=== PATIENT | female | born 1940 | race Caucasian/White ===

== ENCOUNTER 2016-07-12 07:03 | Day surgery (SDC) | payer MEDICARE ==
--- NOTE | ~2016-07-12 | CON ---
PATIENT'S NAME: SERA DEY [facility] AGE: 76 Y [address] ROOM: [place] [address] LOCATION: GEND ADMIT DATE: 07/12/2016 Consultation DISCHARGE DATE: FAMILY PHYSICIAN: Rohan Magana ATTENDING PHYSICIAN: Sam Woods DATE OF CONSULTATION: 07/12/2016 REFERRING PHYSICIAN: Sam Woods MD CHIEF COMPLAINT: "I have a colon mass." HISTORY OF PRESENT ILLNESS: The patient is a 76-year-old female who has had weakness, was found to be anemic. She ultimately had a hemoglobin level checked that was 7.1. She has a remote history of a colon resection this was performed in 1995. She does not know what portion of colon was resected, this was thought to be for malignant polyp, but apparently after resection and was told there was no cancer there. She had no followup after this. She recently had a diarrheal illness. She was treated by antibiotics and now is having bowel movements on nearly a daily basis. She has noticed no melena, no nausea, or vomiting. She was able to complete her bowel prep. She had a colonoscopy performed. On colonoscopy, there was a mass identified at 15 cm. They were not able to traverse this to see the rest of the colon. Several biopsies of this were obtained, that was very concerning for a malignancy. Because of that, I have been consulted. The patient does have a family history of colon cancer with a brother who had colon cancer. PAST MEDICAL HISTORY: Hypertension, history of melanoma. ALLERGIES: NORVASC, PENICILLIN WHICH CAUSES A RASH. CURRENT MEDICATIONS: 1. Clonidine. 2. Irbesartan. 3. Hydrochlorothiazide. 4. Metoprolol. PAST SURGICAL HISTORY: Colon resection, appendectomy, tonsillectomy, as well as excision of melanoma of left arm. FAMILY HISTORY: PATIENT'S NAME: SERA DEY [facility] AGE: 76 Y [address] ROOM: [place] [address] LOCATION: GEND ADMIT DATE: 07/12/2016 Consultation DISCHARGE DATE: FAMILY PHYSICIAN: Rohan Magana ATTENDING PHYSICIAN: Sam Woods A Mother with hypertension. Father with hypertension. She has a brother with colon cancer. SOCIAL HISTORY: Drinks alcohol very rarely. She does drink 2-3 cups of coffee a day. She is , nonsmoker. REVIEW OF SYSTEMS: She denies any headaches, fevers, or chills. No night sweats. She has had no melena, no hematochezia, no hematuria, no dysuria. No diabetes. No pulmonary disease or coronary artery disease. A full review of systems otherwise is all negative. PHYSICAL EXAMINATION: HEENT: Head is normocephalic, atraumatic. Eyes are anicteric. NECK: Supple. No lymphadenopathy. HEART: Regular rate and rhythm. No murmurs audible. LUNGS: Clear to auscultation bilaterally. ABDOMEN: Soft. It is nontender. She has a well-healed midline incision. EXTREMITIES: Warm. No edema. NEUROLOGICAL: Gross motor is intact. ASSESSMENT: Anemia with a colon mass at 3 cm. PLAN: I discussed the findings with the patient and her family, and with this mass being not able to be traversed, likely this is going to need resection. I would like to have biopsy results. We also need to find out what her previous colon resection was as she does not recall what this. She has a CT scan ordered. If metastatic disease is present, likely she will need chemotherapy. We will await those results and discuss this with her when we have the other information. MD MINA ARRIAGA/gurdeep /[id number] d: 07/12/16 1732 t: 07/14/16 1455, CONSULTATION REPORT
[~2016-07-12 07:03] MED LIST: ATIVAN 0.5MG0.5 MG PO; CATAPRES0.1 MG PO; IRBESARTAN-HCT1 EAC1 PO; TOPROL XL 5050 MG PO
[2016-07-12 09:44] LABS: BASOPHIL % 0.3 %; EOSINOPHIL % 0.3 %; HEMATOCRIT 23.3 % (33.0-46.0); IMMATURE GRANULOCYTE # 0.1 K/uL (0.0-0.3); IMMATURE GRANULOCYTE % 1.2 %; LYMPHOCYTE # 0.9 K/uL (0.8-4.0); MCH 21.7 pg (27.0-34.0); MCHC 29.2 gm/dL (32.0-36.5); MCV 74.4 fl (83.0-98.0); MONOCYTE # 0.4 K/uL (0.0-1.0); MONOCYTE % 6.5 %; MPV 8.8 fl (9.4-12.4); NEUTROPHIL # (ANC) 5.2 K/uL (1.8-7.8); NEUTROPHIL % 78.7 %; NRBC % 0 /100WBC (0-0.00); PLATELET COUNT 356 K/uL (150-450); RBC 3.13 M/uL (3.50-5.50); RDW-CV 16.3 % (11.9-14.6); WBC 6.6 K/uL (4.0-11.0)
[2016-07-12 09:48] LABS: PROTIME 10.9 SECONDS (9.6-11.1)
[2016-07-12 09:50] LABS: HEMOGLOBIN 6.8 g/dL (10.0-15.0)
[2016-07-12 09:58] LABS: ALBUMIN 2.8 gm/dL (3.5-5.0); ANION GAP 10.6 (10.0-19.0); BLOOD UREA NITROGEN 17 mg/dL (6-24); CALCIUM 8.4 mg/dL (8.5-10.5); CHLORIDE 108 mMol/L (96-110); CO2 26 mMol/L (22-32); CREATININE 0.9 mg/dL (0.5-1.1); ESTIMATED GFR (MDRD EQUATION) > 60; PHOSPHORUS 3.1 mg/dL (2.5-4.9); POTASSIUM 3.6 mMol/L (3.7-5.1); SODIUM 141 mMol/L (135-145)
--- NOTE | 2016-07-12 12:19 | NUR ---
0915 Dr Woods to conference room 4 to talk with the family about the finding of the EGD and Colonoscopy, and the need for more Lab work and a CT of the abdomen and pelvis. 1020 First 1/2 of barium drank, pt up to bathroom, family at bedside Dr Woods and Dr Hoang have been in and visited with the pt and family. Will do the CT this am and then make a plan from there. 1050 2nd half of barium drank. pt up to the bathroom. [address] to remind them pt is ready and they states We will send for transport. 1200 Dr Peggy ceron and made aware of the fact that we are still waiting on CT to be done. Report to Elsa Dong RN, she is taking over care on this patient. She called CT again and they are going to find out how soon they will be coming to get the pt
--- NOTE | 2016-07-12 14:29 | NUR ---
[address] PER W/C. FAMILY REMAINS IN ROOM [address] FAMILY AT SIDE. 1250 DR DURÁN IN, PT C/O HEADACHE. TYLENOL 1000 MG PO FOR C/O PAIN THAT SHE RATES AT A 4. [place] 1300 [facility]S HIM CALLED FOR SECOND REQUEST OF OP REPORT FROM 1995. INFORMATION SENT TO E' PER [facility]' REQUEST 1315 DR MONTESINOS CALLED REGARDING PT STATUS. STATES WILL BE OVER IN A COUPLE OF HOURS TO GO OVER RESULTS 1400 DRESSED, AMBULATES IN HALLS WITH FAMILY, OFFERS NO C/O
--- NOTE | 2016-07-12 14:55 | NUR ---
14[address] [facility] CALLED AGAIN REGARDING MEDICAL RECORDS. WAS TOLD THAT THEY ARE OUT IN STORAGE AND THEY WOULD NOT BE ABLE TO GET THEM TODAY 1455 DR MONTESINOS HERE TO VISIT WITH PT
--- NOTE | 2016-07-12 16:46 | NUR ---
1530 BLOOD CONSENT SIGNED 1630 1ST UNIT [facility] STARTED. PT TOLERATING WELL. DENIES ANY C/O
--- NOTE | 2016-07-12 17:25 | NUR ---
1720 BLOOD INCREASED TO 170 ML/HR PER PUMP. PT DOZES, OFFERS NO C/O
--- NOTE | 2016-07-12 18:20 | NUR ---
181 REPORT TO SAMPSON MANN. 1820 1ST UNIT [facility] INFUSED
== END 2016-07-12 20:40 | disposition disaster alternative care site (69) ==
LOC: GEND 07:03 → GSIP 07:03 → GPOC 13:00 → GEND 20:40
PROVIDERS: Internal Medicine Gastroenterology
PROC: 0DB68ZX Excision of Stomach, Via Natural or Artificial Opening Endoscopic, Diagnostic (ICD-10-PCS; principal; 2016-07-12)
PROC: 0DB98ZX Excision of Duodenum, Via Natural or Artificial Opening Endoscopic, Diagnostic (ICD-10-PCS; 2016-07-12)
PROC: 0DBN8ZX Excision of Sigmoid Colon, Via Natural or Artificial Opening Endoscopic, Diagnostic (ICD-10-PCS; 2016-07-12)
DX: C18.7 Malignant neoplasm of sigmoid colon (principal); D50.9 Iron deficiency anemia, unspecified; I10 Essential (primary) hypertension; Z86.010 Personal history of colon polyps; Z88.0 Allergy status to penicillin; Z88.8 Allergy status to other drugs, medicaments and biological substances; Z90.49 Acquired absence of other specified parts of digestive tract; Z98.890 Other specified postprocedural states
CPT/HCPCS: J2001; J2250; J7030; J7040; P9016; Q9967

== ENCOUNTER 2016-07-13 11:00 | Inpatient (IN) | payer MEDICARE ==
[~2016-07-13] VITALS: Ht 152.4 cm; Wt 61.4 kg
--- NOTE | ~2016-07-13 | OR ---
PATIENT'S NAME: SERA DEY [facility] AGE: 76 Y [address] ROOM: [address] [address] [place] [facility] [place]: 07/13/2016 OR/Procedure Report DISCHARGE DATE: FAMILY PHYSICIAN: Rohan Magana ATTENDING PHYSICIAN: Tejinder Hoang SURGEON: Tejinder Hoang MD QA DEVELOPER: Celi Caraballo PA-C. DATE OF PROCEDURE: 07/13/2016 PREOPERATIVE DIAGNOSIS: Left colonic adenocarcinoma. POSTOPERATIVE DIAGNOSIS: Left colonic adenocarcinoma. PROCEDURE: Extended left colectomy with transverse colon rectal anastomosis. FINDINGS: The patient had a large number of adhesions making dissection very difficult. There was a large tumor with significant inflammatory changes surrounding this. Because of the previous left colectomy, the entire colon had to be mobilized and able to perform an anastomosis. ESTIMATED BLOOD LOSS: 500 mL. COMPLICATIONS: None. INDICATIONS: The patient is a 76-year-old female who was anemic and was found to have a large adenocarcinoma. She had previous left hemicolectomy for polyps. CT revealed no evidence of metastatic disease. We discussed resection with the patient, the risks, benefits, and alternatives, which included, but were not limited to, bleeding, infection, ureter injury, anastomotic leak, potential need for ostomy, injury to other viscera. She understood the risks and elected to proceed. DESCRIPTION OF PROCEDURE: The patient was taken to the operating room, she was placed supine, she is given IV sedation, and subsequently intubated. She was placed in stirrups and a Grant catheter was inserted. Her abdomen was then prepped with ChloraPrep and sterilely draped. In the left upper quadrant, a small stab incision was created. A Veress needle was inserted. Pneumoperitoneum was induced. Following this, using an optical viewing trocar, we inserted a 5-mm trocar. Visualization was not possible on insertion and there were concerns for a bowel injury at this time. Another trocar was then inserted using the optical viewing trocar leaving the 1st trocar in place. This was inserted in the left abdomen. The 1st trocar was encased in an area of bowel and omentum. On insertion of the camera, she was noted to have adhesions, a large number of these throughout the abdomen. Two more trocars were placed. These were a 5 and a 12 mm trocar making this a PATIENT'S NAME: SERA DEY [facility] AGE: 76 Y [address] ROOM: [id number] [place], [place] [address] [place] [facility] [place]: 07/13/2016 OR/Procedure Report DISCHARGE DATE: FAMILY PHYSICIAN: Rohan Magana ATTENDING PHYSICIAN: Tejinder Hoang total of 4 trocars. We began adhesiolysis. We lysed adhesions around where the initial trocar was inserted and it did appear as though this did create an enterotomy. Once this was lysed, we were able to identify this area, the trocar had created 2 small holes in the bowel. These were both closed with the laparoscopic endo-stitch. The enterotomies were very small. We continued adhesiolysis of the entire bowel. This was quite extensive and extending all the way from the epigastrium all way down into the pelvis. More than an hour and a half were spent lysing adhesions before we could identify the colon. There were adhesions into the pelvis. These were also lysed. Once we were able to visualize the colon, we began laparoscopic mobilization. Because we could not identify any significant tissue planes due to her previous resection, ultimately we ended up converting to a laparotomy. Again, more than 2 hours were spent laparoscopically mainly in adhesiolysis. The pneumoperitoneum was released. A midline incision was created over previous incision carried through subcutaneous tissues using electrocautery. The linea alba was then incised, the abdominal cavity entered, and the incision was opened along its entirety. An Aaron wound protector was placed to aid in retraction. We then turned our attention to the colon. She had a previous hemicolectomy performed and it appeared as though the small bowel was very adherent to the colon and we continued to lyse adhesions until we could visualize the entire colon. It appeared as though the distal transverse colon and potentially a portion of the flexure had been previously mobilized and brought down into the pelvis. We were able to identify the previous area of anastomosis. Again, dissection was a very difficult as there were no significant tissue planes and a large number of adhesions. We were able to dissect circumferentially around the colon just below the previous anastomosis. A contour stapler was then placed across this and fired so that we could free the more proximal bowel. We continued to mobilize the bowel. Again, there were a large number of adhesions and mesentery was even difficult to discern. We advanced up to where this large mass was present. This was very firm. There were significant inflammatory changes surrounding this. The ureter was difficult to identify, but ultimately we were able to identify this, and this was felt to be preserved. We continued our dissection on the tumor and an en bloc resection of the tumor was able to be performed. The omentum was surrounding the tumor. To free this area, all of this was divided with the EnSeal device and again en bloc resection was able to be performed. Once we had dissected proximal to the tumor, it did not appear that we would have enough mobility to reach the pelvis without sacrificing the middle colic vessels. Ultimately, the middle colic vessels were divided with the EnSeal device. We continued to mobilize the colon. The hepatic flexure and right colon were also mobilized. The peritoneum lateral to the colon was incised and the colon was mobilized medially. Indocyanine green was then injected with the lights off. We visualized the transverse colon. This enabled us to select a resection point. The mesentery was then divided into this area, distal to this, there did not appear to be perfusion. The bowel was then PATIENT'S NAME: SERA DEY [facility] AGE: 76 Y [address] ROOM: [address] [address] [place] [facility] [place]: 07/13/2016 OR/Procedure Report DISCHARGE DATE: FAMILY PHYSICIAN: Rohan Magana ATTENDING PHYSICIAN: Tejinder Hoang divided in this area between a pursestring clamp. This was passed off the table as specimen. We examined the specimen on the back-table. The previous distal staple line was present within our resection specimen. Once this was completed, the pursestring suture was placed on the transverse colon. A 29 EEA anvil was inserted into the [id number] transverse colon and was secured. The bowel was again inspected. We had adequate mobility. We had checked perfusion previously. It would appear as though this would lie in the pelvis without tension. The stapler was then inserted in the rectum and brought up to the rectal stump. This was below the sacral promontory. The spike was brought out the rectum, the anvil was then docked onto the spike, the stapler was closed, the stapler was fired, this was then leak tested, and there was no air leak. There were 2 full rings when the stapler was removed. The abdominal cavity was then copiously irrigated, it was inspected, it appeared hemostatic. The enterotomy that was previously repaired was examined. It was tested and was watertight. However, the appearance was suboptimal. Because of this, I removed the suture and repaired both of these areas, which were less than a cm in size with interrupted 3-0 silk sutures. This was again leak tested. During the dissection, the left tube was very adherent, we had difficulty finding planes in this area, there was some bleeding around this, because of this, this was resected as well. Again, the abdominal cavity was copiously irrigated. It appeared hemostatic. The midline fascia was then reapproximated with 0 looped PDS suture. The skin edges were reapproximated with daniel. Sponge, needle, and instrument counts are reported as correct. The operation required nearly 5 hours of operative time. MD MINA ARRIAGA/gurdeep /[id number] d: 07/14/16 0059 t: 07/14/16 1455, OPERATIVE SUMMARY
--- NOTE | ~2016-07-13 | DS ---
PATIENT'S NAME: SERA HELM [facility] AGE: 76 Y [address] ROOM: [id number] [place], [place] [address] LOCATION: [facility] – [place] ADMIT DATE: 07/13/2016 Discharge Summary DISCHARGE DATE: 07/20/2016 FAMILY PHYSICIAN: Rohan Magana ATTENDING PHYSICIAN: Tejinder Hoang DIAGNOSES: 1. Stage IIA adenocarcinoma of the left colon at 15 cm with prior history of a sigmoid colon resection. 2. Acute blood loss anemia with history of chronic anemia from gastrointestinal blood loss. 3. Hypertension. 4. Protein-calorie malnutrition. 5. Prior history of melanoma. SUMMARY: Sera Helm is a 76-year-old female, who recently had noticed weakness and was found to be anemic with a hemoglobin of 7.1. The patient was evaluated by Dr. Woods and a colonoscopy was attempted. There was a mass identified at 15 cm and they were not able to traverse this with the scope to view the rest of the colon. Several biopsies were obtained and adenocarcinoma was found. Dr. Hoang was asked to see the patient on July 12. A CT scan was obtained, which showed a descending colon lesion in the left lower quadrant. The lesion was exophytic, ulcerated with inflammatory change and adjacent fluid collection along the psoas in the left retroperitoneum. No evidence for distant metastatic disease was seen. Dr. Hoang discussed the findings and options versus surgical resection. The patient was transfused prior to discharge from her colonoscopy and was brought back to [facility] the following day to review pathology results. The patient subsequently chose to proceed with colon resection that afternoon. Therefore, she was admitted to [facility] on July 13, where she received 2 g IV preoperatively. The patient was taken into the operating room for a laparoscopic, which converted to an open colon resection. Please see Dr. Hoang's procedure note for specifics. We had an estimated blood loss of 700 mL. Postoperatively, activity was allowed as tolerated. An NG tube was placed to low intermittent suction. Grant to dependent drainage. Pulmonary toiletry was encouraged. An epidural was placed by anesthesiologist for postoperative pain control. Heparin was ordered for DVT prophylaxis. On postop day 1, pain control was adequate. She had some dry heaves. NG only had 50 mL out. Hemoglobin was 9.4. CEA level returned at 16.4. On postop day 2, the NG tube was removed. Home medications were resumed for hypertension. On postop day 3, the patient reported passing gas. She had no nausea. Pain continued to be controlled. She was started on clear liquids and was advanced to a full liquid diet later in the day. On postop day 4, her epidural catheter was removed. Her bowels were working with frequent loose stools. She was tolerating clear liquids. Her IV was saline locked. On PATIENT'S NAME: SERA HELM [facility] AGE: 76 Y [address] ROOM: [address] [address] LOCATION: [facility] – [place] ADMIT DATE: 07/13/2016 Discharge Summary DISCHARGE DATE: 07/20/2016 FAMILY PHYSICIAN: Rohan Magana ATTENDING PHYSICIAN: Tejinder Hoang postop day 5, the patient was nauseated and states that she did not eat much in the last 24 hours. She continued to have loose stools. IV fluids were restarted. Later in the day, the patient was feeling better and felt that the nausea was related to the [place]. She was advanced to a surgical soft diet. [place] was discontinued. Tylenol, ibuprofen, and Nucynta were all ordered for pain control along with Pepcid for the nausea. On postop day 6, the patient was doing well and was tolerating p.o. intake. On postop day 7, the patient continued to do well. Final pathology results were discussed and arrangements were made for the patient to discharge home. Dr. Cazares was asked by family to review the patient's home medications for the hypertension. She did stop amlodipine and the morning dose of metoprolol and added hydralazine. DISCHARGE INSTRUCTIONS: Include no restrictions on diet. No heavy lifting. She will follow up with Dr. Hoang in 1 week. DISCHARGE MEDICATIONS: Includes: 1. Metoprolol 50 mg orally q.h.s. 2. Irbesartan/hydrochlorothiazide 300/12.5 one tablet p.o. daily. 3. Lorazepam 0.5 mg 3 times daily as needed for anxiety. 4. Tylenol 500 mg 2 p.o. every 6 hours as needed for pain. 5. Calcium carbonate 2-4 tablets orally every 4 hours as needed. 6. Ibuprofen 600 mg orally every 6 hours as needed. 7. Hydralazine 50 mg orally twice daily. FINAL PATHOLOGY RESULTS: Adenocarcinoma grade 2 of 3 with no metastatic carcinoma in 19 pericolic lymph nodes. This is a T3 N0 placing it as a stage IIA colon cancer of the left colon, most likely descending colon. Again, CEA level was 16.[address] scan of the abdomen and pelvis preoperatively showed no metastatic disease. The patient will need a followup completion colonoscopy. For specifics on day-to-day care, please refer to the hospital chart. MARGUERITE QUEEN PA-C FOR MD HOMERO ARRIAGA/gurdeep /[id number] d: 07/21/16610 t: 07/25/16 1658, DISCHARGE SUMMARY
[2016-07-13 12:48] LABS: BASOPHIL % 0.2 %; EOSINOPHIL % 0.5 %; HEMOGLOBIN 10.1 g/dL (10.0-15.0); IMMATURE GRANULOCYTE % 0.5 %; LYMPHOCYTE # 1.2 K/uL (0.8-4.0); LYMPHOCYTE % 13.8 %; MONOCYTE # 0.5 K/uL (0.0-1.0); MONOCYTE % 5.3 %; MPV 9.4 fl (9.4-12.4); NEUTROPHIL # (ANC) 6.9 K/uL (1.8-7.8); NEUTROPHIL % 79.7 %; NRBC % 0 /100WBC (0-0.00); RDW-CV 16.2 % (11.9-14.6); WBC 8.6 K/uL (4.0-11.0)
[2016-07-13 12:49] LABS: HEMATOCRIT 32.4 % (33.0-46.0); MCH 23.4 pg (27.0-34.0); MCHC 31.2 gm/dL (32.0-36.5); PLATELET COUNT 266 K/uL (150-450); RBC 4.32 M/uL (3.50-5.50)
[2016-07-13 13:03] LABS: ALBUMIN 2.9 gm/dL (3.5-5.0); ANION GAP 15.4 (10.0-19.0); BLOOD UREA NITROGEN 13 mg/dL (6-24); CALCIUM 8.5 mg/dL (8.5-10.5); CHLORIDE 110 mMol/L (96-110); CO2 21 mMol/L (22-32); CREATININE 0.9 mg/dL (0.5-1.1); ESTIMATED GFR (MDRD EQUATION) > 60; PHOSPHORUS 2.5 mg/dL (2.5-4.9); POTASSIUM 3.4 mMol/L (3.7-5.1); SODIUM 143 mMol/L (135-145)
[2016-07-13 20:01] LABS: BASOPHIL % 0.1 %; HEMATOCRIT 36.6 % (33.0-46.0); HEMOGLOBIN 11.7 g/dL (10.0-15.0); IMMATURE GRANULOCYTE # 0.1 K/uL (0.0-0.3); IMMATURE GRANULOCYTE % 0.6 %; LYMPHOCYTE # 0.8 K/uL (0.8-4.0); LYMPHOCYTE % 5.4 %; MCH 26.1 pg (27.0-34.0); MONOCYTE # 0.7 K/uL (0.0-1.0); MONOCYTE % 5.1 %; MPV 9.2 fl (9.4-12.4); NEUTROPHIL # (ANC) 12.4 K/uL (1.8-7.8); NEUTROPHIL % 88.8 %; NRBC % 0 /100WBC (0-0.00); PLATELET COUNT 222 K/uL (150-450); RBC 4.48 M/uL (3.50-5.50)
[2016-07-13 20:02] LABS: MCV 81.7 fl (83.0-98.0); RDW-CV 18.2 % (11.9-14.6)
[2016-07-13 20:25] LABS: INR - (THERAPEUTIC) 1.15 (0.92-1.07); PROTIME 12.1 SECONDS (9.8-11.4)
[2016-07-14 05:02] LABS: HEMATOCRIT 29.5 % (33.0-46.0); HEMOGLOBIN 9.4 g/dL (10.0-15.0); MCH 25.4 pg (27.0-34.0); MCHC 31.9 gm/dL (32.0-36.5); MCV 79.7 fl (83.0-98.0); MPV 9.6 fl (9.4-12.4); RBC 3.7 M/uL (3.50-5.50); RDW-CV 17.2 % (11.9-14.6); WBC 15.6 K/uL (4.0-11.0)
[2016-07-14 05:24] LABS: ANION GAP 12.7 (10.0-19.0); BLOOD UREA NITROGEN 15 mg/dL (6-24); CALCIUM 7.3 mg/dL (8.5-10.5); CHLORIDE 112 mMol/L (96-110); CO2 23 mMol/L (22-32); CREATININE 0.8 mg/dL (0.5-1.1); ESTIMATED GFR (MDRD EQUATION) > 60; POTASSIUM 3.7 mMol/L (3.7-5.1); SODIUM 144 mMol/L (135-145)
--- NOTE | 2016-07-14 05:34 | NUR ---
Significant Event: Patient alert and oriented X4. Patient on fent/ropicaine epidural 3mcg cont/2mcg demand and 10min lockout. 3 lap sites to R) side abdomen and midline incision has shadow drainage. Midline IV to L) upper arm with LR running at 125ml. On room air. Vitals stable. Afebrile. 0.1mg IV dilaudid given X1 for breakthrough pain. Miles in place. Pressed pain button 13 demands/13 deliveries. NPO with ice chips, candy gum. Patient compaints of pain after coughing and has dry mouth. ICe chips and swabs at bedside. Follow up: Monitor pain
--- NOTE | 2016-07-14 08:39 | NUR ---
(-)MST; NO UNPLANNED WT LOSS. WILL ASSIST NEEDED
--- NOTE | 2016-07-14 16:13 | NUR ---
Patient is alert and oriented, VSS, on room air. NPO with ice chips, hard candy and gum. 1-2 assist with gait belt. Epidural with Fent/Ropiv set at 5mcg continuous, 2mcg demand and 10 minute lockout. Had 50 demands and 38 deliveries. Midline to L) upper arm and IV to L) forearm. Has 3 lap sites and a midline incision. Dressing to midline has old shadow drainage. Ambulated in the room once this shift, tolerated fairly well. Is complaining of pain in her upper L) quadrant by the lap site. Will apply ice. NG in L) nare with 75ml out, marked. Juanita with Q4 hour output, call if less than 120ml. Tele with no calls.
--- NOTE | 2016-07-15 04:34 | NUR ---
Significant Event: Patient alert and oriented X4. Up with 1-2 person assist and gait belt. Patient refused getting up to walk but dangled at bedside for few minutes. Grant in place. LR at 125 to L) midline. Also has saline lock to L) FA. Ng to L) nare had 150ml out. Epidural running fent/ropivicaine at 5cont/2demand and 10 min lockout. 23 given and 26 attempts. Slept well on and off tonight. Ice to incision and kpad to back. Relief noted. Rating pain most at 5 tonight. Patient in better spirits tonight. NPO with ice, candy, gum. Follow up: Moitiro pain/incisions
[2016-07-15 05:11] LABS: BASOPHIL % 0.2 %; EOSINOPHIL % 0.2 %; HEMATOCRIT 28.3 % (33.0-46.0); HEMOGLOBIN 9.1 g/dL (10.0-15.0); IMMATURE GRANULOCYTE # 0.1 K/uL (0.0-0.3); IMMATURE GRANULOCYTE % 0.6 %; LYMPHOCYTE # 1.1 K/uL (0.8-4.0); LYMPHOCYTE % 7.9 %; MCH 25.9 pg (27.0-34.0); MCHC 32.2 gm/dL (32.0-36.5); MCV 80.4 fl (83.0-98.0); MONOCYTE # 0.7 K/uL (0.0-1.0); MONOCYTE % 5.6 %; MPV 9.4 fl (9.4-12.4); NEUTROPHIL # (ANC) 11.3 K/uL (1.8-7.8); NEUTROPHIL % 85.5 %; NRBC % 0 /100WBC (0-0.00); PLATELET COUNT 151 K/uL (150-450); RBC 3.52 M/uL (3.50-5.50); RDW-CV 18.7 % (11.9-14.6); WBC 13.2 K/uL (4.0-11.0)
[2016-07-15 05:29] LABS: ALBUMIN 2.2 gm/dL (3.5-5.0); ANION GAP 14.5 (10.0-19.0); BLOOD UREA NITROGEN 12 mg/dL (6-24); CALCIUM 8.2 mg/dL (8.5-10.5); CHLORIDE 110 mMol/L (96-110); CO2 22 mMol/L (22-32); CREATININE 0.6 mg/dL (0.5-1.1); ESTIMATED GFR (MDRD EQUATION) > 60; POTASSIUM 3.5 mMol/L (3.7-5.1); SODIUM 143 mMol/L (135-145)
[2016-07-15 05:34] LABS: PHOSPHORUS 1.9 mg/dL (2.5-4.9)
--- NOTE | 2016-07-15 18:57 | NUR ---
Patient is alert and oriented, hypertensive, on 2L O2 when sleeping. Fent/Ropiv. epidural set at 5mcg continuous, 2mcg demand with 10 minute lockout, 20 demands with 18 deliveries. NG was removed this morning with no issues, nausea or vomiting after. Walked in the halls x2 this shift and up in the chair for a good portion of the day.
[2016-07-16 05:20] LABS: ANION GAP 11.7 (10.0-19.0); BLOOD UREA NITROGEN 11 mg/dL (6-24); CALCIUM 8.2 mg/dL (8.5-10.5); CHLORIDE 108 mMol/L (96-110); CO2 25 mMol/L (22-32); CREATININE 0.6 mg/dL (0.5-1.1); ESTIMATED GFR (MDRD EQUATION) > 60; PHOSPHORUS 2.2 mg/dL (2.5-4.9); POTASSIUM 3.7 mMol/L (3.7-5.1); SODIUM 141 mMol/L (135-145)
[2016-07-16 05:22] LABS: ALBUMIN 1.9 gm/dL (3.5-5.0)
--- NOTE | 2016-07-16 06:58 | NUR ---
Significant Event: Patient alert and orineted X4. Up with one assist and gait belt. Walked in halls 2 times last night and did very well. Passing gas. Incisions have old drainage. Grant in place. Adequate output. Midling to L) arm with IVF at 75. 2 liters oxygen at night. Epidural at 08/07/09. Pressed button 6 times. NPO with ice chips, hard candy, gum. Vitals stable. ETCO2 monitor on. Taking some PO meds. On heparin. Follow up: Ambulate
--- NOTE | 2016-07-16 12:31 | NUR ---
Student nurse provided patient cares from 0600 to 1230. Jono Jackson RN, [facility] Instructor
--- NOTE | 2016-07-16 17:33 | NUR ---
Patient is alert and oriented, VSS, on room air while awake. Can dip into the upper 80's when sleeping, 2L O2 applied then. Lap sites x4, midline dressing has old shadow drainage. Epidural, Fent/Ropiv. set at 5mcg continuous, 2mcg demand with a 10 minute lockout, 6 deliveries with 8 attempts this shift. Midline to upper arm infusing D5 1/2NS with 20mEq K+Cl- at 50ml. Started clear liquid diet today, tolerating well. Gave phosphate packet today, made her nauseous, zofran given x1. Moderate liquid stool this shift. Ambulates in the padilla with 1-2 assist only because of the IV pole and her tubing. She has a morales that is patent with 350ml out. Continue to monitor pain. Tele with no calls.
[2016-07-17 05:28] LABS: ALBUMIN 2.1 gm/dL (3.5-5.0); ANION GAP 10.6 (10.0-19.0); BLOOD UREA NITROGEN 16 mg/dL (6-24); CALCIUM 7.9 mg/dL (8.5-10.5); CHLORIDE 106 mMol/L (96-110); CO2 28 mMol/L (22-32); CREATININE 0.9 mg/dL (0.5-1.1); ESTIMATED GFR (MDRD EQUATION) > 60; PHOSPHORUS 2.6 mg/dL (2.5-4.9); POTASSIUM 3.6 mMol/L (3.7-5.1); SODIUM 141 mMol/L (135-145)
--- NOTE | 2016-07-17 05:57 | NUR ---
Significant Event: Pt up in chair beginning of shift. 1 assist with gait belt/walker. Had 4 small loose stools this shift, some incont. Ambulated in padilla x 1 and tolerated well. Had moderate amount of cramping beginning of shift which subsided after a few BM's. Epidural intact and controlling pain. No demends this shift. Plan for epidural removal this morning. Held HS heparin last night. Follow up: Cont to advance diet and ambulate.
--- NOTE | 2016-07-17 17:16 | NUR ---
Patient is alert and oriented, hypertensive. Epidural was removed this morning, morales removed at 1500, no void since then. She is SBA with walker and GB. Full liquid diet today, tolerated well but is now having some acid reflux. TUMS were given around 1700 along with 2 [place] at that time. She wants to take a shower before she goes to bed tonight.
--- NOTE | 2016-07-18 04:14 | NUR ---
Significant Event: Patient is A&O x 3. VSS on RA. Grant removed yesterday afternoon, 5 voids since. 2 loose stools during shift. Full liquid diet, has had some acid reflux. TUMS given at 2153. 1 tab Cassoday for pain last given at 2345. Lap sites to left and right abdomen. Midline incision to lower abdomen. Midline IV to upper L) arm SL. SBA with walker and gait belt. Follow up: Continue to advance diet and ambulate.
[2016-07-18 08:18] LABS: BASOPHIL % 0.3 %; EOSINOPHIL # 0.2 K/uL (0.0-0.5); EOSINOPHIL % 2.3 %; HEMOGLOBIN 10.1 g/dL (10.0-15.0); IMMATURE GRANULOCYTE % 0.4 %; LYMPHOCYTE # 0.9 K/uL (0.8-4.0); LYMPHOCYTE % 9.3 %; MCH 25.8 pg (27.0-34.0); MCHC 31.6 gm/dL (32.0-36.5); MCV 81.6 fl (83.0-98.0); MONOCYTE # 0.6 K/uL (0.0-1.0); MONOCYTE % 5.8 %; MPV 9.3 fl (9.4-12.4); NEUTROPHIL # (ANC) 8.2 K/uL (1.8-7.8); NEUTROPHIL % 81.9 %; NRBC % 0 /100WBC (0-0.00); PLATELET COUNT 225 K/uL (150-450); RBC 3.92 M/uL (3.50-5.50); RDW-CV 19.9 % (11.9-14.6)
[2016-07-18 08:35] LABS: ALBUMIN 2.4 gm/dL (3.5-5.0); ALK PHOS 64 IU/L (33-138); ALT 11 IU/L (12-78); ANION GAP 11.6 (10.0-19.0); AST 11 IU/L (10-40); BLOOD UREA NITROGEN 16 mg/dL (6-24); CHLORIDE 106 mMol/L (96-110); CO2 28 mMol/L (22-32); CREATININE 0.8 mg/dL (0.5-1.1); ESTIMATED GFR (MDRD EQUATION) > 60; POTASSIUM 3.6 mMol/L (3.7-5.1); SODIUM 142 mMol/L (135-145); TOTAL BILIRUBIN 0.8 mg/dL (0.0-1.5); TOTAL PROTEIN 6.3 g/dL (6.0-8.4)
--- NOTE | 2016-07-18 11:31 | NUR ---
A - PT SCREENED D/T LOS. S/P LAP COLON RESECTION D/T MASS. NAUSEA - MEDS GIVEN. LABS: K+ 3.6, ALB 2.4. MEDS: D5NS, KCL, PROTONIX, NAUSEA. HT: 60" WT: 135#, BMI: 26.4. NEEDS: 7380-6944 KCAL (22-28 KCAL/KG), 61-73 G PRO (1-1.2 G/KG), 1830 ML FLUID (30 ML/KG). DIET: FULL LIQUID. INTAKE: SIPS-75% D - INADEQUATE NUTRIENT INTAKE R/T ALTERED GI FUNCTION AEB RECENT COLON RESECTION, LIQUID DIET, INTAKE RECORD. I - GOAL FOR ORAL INTAKE TOLERANCE. WILL ADD ENSURE TID TO INC NUTRIENT INTAKE. M/E- WILL MONITOR INTAKE AND GI FUNCTION F/U IN 2-5 DAYS.
--- NOTE | 2016-07-18 19:51 | NUR ---
Significant event: Pt. A&Ox3. VSS on RA. 2 loose stools during shift, entirely liquid. Advanced from full liquid to soft diet. Pt. had significant GERD symptoms during shift, tums, protonix, and pepcid given with relief noted. Educated on food/drinks to avoid. Lap site to L)abd steri-stripped. R)abd 3 sites, 1 staple in 2, 2 daniel in 3rd. Midline incision open to air, daniel intact. Order for abdominal binder, called CS and should be to floor this evening. Ambulated in room and hallways throughout shift, down to [employer] in afternoon. SBA with walker and gait belt. Has k-pad in room for pain. Denied pain this shift. On tele, no calls. New orders for nucynta for pain. Bolus of 500 NS given this AM, then began 75 mls/hr of D51/2NS with potassium.
--- NOTE | 2016-07-19 07:02 | NUR ---
Significant Event: Pt alert and oriented. VSS. Midline incision approximated with daniel. Lap sites approximated with daniel as well. 1 lap site has steristrips. Passing flatus and stool x 3. No c/o nausea. Tolerated soft diet for supper. Ambulated in padilla, uses walker with SBA. Follow up: Cont to monitor.
--- NOTE | 2016-07-19 15:01 | NUR ---
Significant Event: PT A/O. VSS ON RA, AFEBRILE. MIDLINE TO LAZARO, SALINE LOCKED. TELEMETRY ON WITH NO CALLS. PT AMBULATED IN HALLS MULTIPLE TIMES THIS SHIFT WITH SUPERVISION, UP AD KATIE IN ROOM WITH WALKER. PRN TYLENOL, 1 TAB PER PT REQUEST AT 1030, RELIEF NOTED. TOLERATING REGULAR DIET. MIDLINE INCISIONS, [place] INTACT. ABDOMINAL BINDER IN ROOM IF PT WISHES TO WEAR IT. THERAPY WORKING WITH. PLAN IS HOME TOMORROW WHEN RIDE IS AVAILABLE. Follow up: HOME MEDS IN MED ROOM, DISCHARGE TOMORROW
--- NOTE | 2016-07-19 16:17 | NUR ---
Introduced self and role of care management to pt. She lives with her near [place] and the plan is home tomorrow. She plans on home and denies needs except maybe a walker. I explained I can get a script but she could look into renting, purchasing or borrowing as needed. 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 Will assist as needed.
--- NOTE | 2016-07-20 03:49 | NUR ---
SIGNIFICANT EVENT: Patient alert & oriented, ambulates well in room. Limited assist. Hypertensive - 152 to 162 over 85 to 93, other VSS on RA. PIV to L) UA is SL. Tele on, no calls. Had colon resection this visit on 07/13/16 - Midline surgical incision has daniel. Nucynta x1, last at 2317. Motrin x1, last at 0119. Soft diet. Plan to DC home today.
[2016-07-20] MEDS ORDERED: TYLENOL EXTRA500 MG PO (08:56)
[2016-07-20] MEDS ORDERED: MOTRIN600 MG PO (08:57)
[2016-07-20] MEDS ORDERED: TUMS REGULAR ST1 TAB PO (08:57)
--- NOTE | 2016-07-20 09:59 | NUR ---
[id number] Supervised [facility] Facility Maintenance Supervisor.
--- NOTE | 2016-07-20 10:00 | NUR ---
RECEIVED ORDER FOR PATIENT TO GET FRONT WHEELED WALKER. I SPOKE TO PATIENT AND HER SPOUSE AT THE BEDSIDE. PATIENT AND HER SPOUSE TELL ME THAT THEY DO NOT THINK SHE NEEDS A WALKER AT THIS TIME AND IF SHE DOES DECIDE THAT SHE WANTS ONE SHE WILL GET IT AT A PLACE CLOSER TO HOME. PATIENT DENIES ANY OTHER NEEDS AT THIS TIME. PATIENT IS ANXIOUS TO GO HOME TODAY.
[2016-07-20] MEDS ORDERED: APRESOLINE50 MG PO (11:37)
--- NOTE | 2016-07-20 12:00 | NUR ---
DISCHARGE: Pt. was educated on new medications, colon resection d/c instructions, d/c instructions. No questions or concerns, verbalized understanding of instruction. Midline removed by primary nurse. Left with all belongings, home medications, and prescriptions. Taken to front door by aide and driven home by family.
--- NOTE | 2016-07-31 15:19 | NUR ---
Made two attempts to call patient for post hospitalization follow up call. On one attempt spoke with and he asked that I call back. I did call back and left message, but did not get a return call.
== END 2016-07-20 12:08 | disposition disaster alternative care site (69) | DRG 330 ==
LOC: GMSU 11:00
PROVIDERS: Anesthesiology; Physician Assistant; ADMIT Surgery
DX: C18.6 Malignant neoplasm of descending colon (principal); D62 Acute posthemorrhagic anemia; E44.1 Mild protein-calorie malnutrition; D50.0 Iron deficiency anemia secondary to blood loss (chronic); I10 Essential (primary) hypertension; Z68.26 Body mass index [BMI] 26.0-26.9, adult; Z85.820 Personal history of malignant melanoma of skin; Z98.890 Other specified postprocedural states; Z85.038 Personal history of other malignant neoplasm of large intestine; K66.0 Peritoneal adhesions (postprocedural) (postinfection); R11.0 Nausea; T39.1X5A Adverse effect of 4-Aminophenol derivatives, initial encounter; K21.9 Gastro-esophageal reflux disease without esophagitis
CPT/HCPCS: C1751; C9113; J0694; J1100; J1170; J1335; J1644; J1940; J2001; J2250; J2405; J3010; J3480; J7030; J7040; J7120; P9016; P9045; Q9967